=== PATIENT | male | born 1995 | race Caucasian/White ===

== ENCOUNTER 2020-04-12 09:46 | Outpatient (CLI) | payer OTHER ==
--- NOTE | 2020-04-12 10:40 | ULT ---
LIMITED LEFT BREAST ULTRASOUND: Date: 04/12/2020 HISTORY: Left breast pain. FINDINGS/IMPRESSION: Sonographic evaluation of the region of palpable concern in the retroareolar aspect of the left breas t demonstrates no abnormality. POS: OFF
== END 2020-04-12 09:47 | disposition home or self-care (01) ==
LOC: BICULT 09:46
PROVIDERS: ATTEND Nurse Practitioner Family
DX: N64.4 Mastodynia (principal)